=== PATIENT | female | born 1950 | race American Indian/Alaskan Native ===

== ENCOUNTER 2016-08-08 07:39 | Day surgery (SDC) | payer OTHER ==
[2016-08-08 08:28] LABS: Basophils % (Auto) 0.8 % (0.0-1.8); Hematocrit 33.4 % (30.3-42.9); Hemoglobin 10.6 gm/dl (10.1-14.3); Mean Corpuscular HGB Conc 32 % (30-34); Mean Corpuscular Hemoglobin 26 pg (28-32); Mean Corpuscular Volume 83 fl (79-97); Platelet Count 187 K/mm3 (140-440); Red Blood Count 4.04 M/mm3 (3.65-5.03); Red Cell Distribution Width 15.6 % (13.2-15.2); White Blood Count 6.1 K/mm3 (4.5-11.0)
[2016-08-08 08:38] LABS: INR 1.1 (0.87-1.13)
[2016-08-08 08:43] LABS: Anion Gap 14 mmol/L; Blood Urea Nitrogen 9 mg/dL (7-17); Calcium 9.4 mg/dL (8.4-10.2); Carbon Dioxide 27 mmol/L (22-30); Chloride 103.9 mmol/L (98-107); Glucose 100 mg/dL (65-100); Potassium 4.2 mmol/L (3.6-5.0); Sodium 141 mmol/L (137-145)
[2016-08-08] MEDS ORDERED: NACL 0.9% 500 ML 500 ML IV SCH (09:00)
[2016-08-08] MEDS ORDERED: XYLOCAINE 2% INFILTRATI ONE (09:30)
[2016-08-08] MEDS ORDERED: HEPARIN/NS 5000 UNIT/500ML(CATH LAB) 1,000 ML IR ONE (09:30)
[2016-08-08] MEDS ORDERED: CALAN ONE (09:30)
[2016-08-08] MEDS ORDERED: HEPARIN 10,000 UNITS/10 ML ONE (09:30)
[2016-08-08] MEDS ORDERED: NITROGLYCERIN SYRINGE 3 ML ONE (09:31)
[2016-08-08] MEDS ORDERED: SUBLIMAZE ONE (09:31)
[2016-08-08] MEDS ORDERED: VERSED ONE (09:31)
[2016-08-08] MEDS ORDERED: NACL 0.9% 1000 ML 1,000 ML IV SCH (13:00)
--- NOTE | 2016-08-08 13:01 | Discharge Summary ---
Short Stay Discharge Plan Activity: advance as tolerated Weight Bearing Status: Full Weight Bearing Diet: low fat, low cholesterol, low salt Wound: keep clean and dry Special Instructions: no heavy lifting (3 days) Follow up with: ABRAHAM WORTHY JR, MD [Primary Care Provider] - 7 Days XIMENA CHAN MD [Staff Physician] - 7 Days Forms: [facility] PCI D/C Instructions
[2016-08-08 13:38] VITALS: BP 121/68
--- NOTE | 2016-08-08 16:24 | Cardiac Catherization Report ---
CARDIAC CATHETERIZATION REPORT REASON FOR PROCEDURE: Chest pain and abnormal thallium stress test. DESCRIPTION OF PROCEDURE: The patient was prepped and draped in a sterile fashion after informed consent. The right radial cath site was prepped and draped after a negative Leodan's test. A 6-Maltese hydrophilic sheath was inserted using the Seldinger technique. Selective left and right coronary angiography was performed using a #3.5 left Sukhdeep and #4 right Sukhdeep. A pigtail catheter was used for left ventricle angiography. The catheters were removed, sheath removed, and hemostasis achieved using manual compression. The patient was returned to the post-procedure unit in stable condition. There were no complications. FINDINGS: HEMODYNAMICS: Left ventricle end diastolic pressure was 16, following coronary angiography. Ascending aortic pressure was 98/62. There was no significant pressure gradient on pullback across the aortic valve. CORONARY ANGIOGRAPHY: The left main coronary artery was angiographically normal. The left anterior descending artery and the diagonal branches were free of significant disease. The circumflex artery and its obtuse marginal branches were free of significant disease. The right coronary artery was a small caliber vessel. This vessel and the circumflex appeared codominant. The right coronary was also free of significant disease. There was normal left ventricular chamber size and systolic function, ejection fraction was 55-60%. CONCLUSION: 1. No significant coronary artery disease, essentially angiographically normal coronary arteries. 2. The circumflex and right coronary arteries are codominant. 3. Normal left ventricular systolic function, ejection fraction 55-60%. RECOMMENDATION: Risk factor modification and medical therapy. [facility]# [id number] LEXA/NTS
== END 2016-08-08 13:40 | disposition home or self-care (01) ==
LOC: OPU 07:39
PROVIDERS: ATTEND Internal Medicine Cardiovascular Disease
DX: R94.39 Abnormal result of other cardiovascular function study (principal); R07.9 Chest pain, unspecified; E78.5 Hyperlipidemia, unspecified; Z80.9 Family history of malignant neoplasm, unspecified; Z82.49 Family history of ischemic heart disease and other diseases of the circulatory system
CPT/HCPCS: 36415; 80048; 85025; 85610; 85730; 93005; 93010; 93458; C1894; J1644; J2250; J3010; J7040; Q9967